=== PATIENT | female | born 1955 | race Caucasian/White ===

== ENCOUNTER 2016-10-08 18:03 | Inpatient (IN) | payer OTHER ==
[~2016-10-08] VITALS: Ht 162.6 cm; Wt 58.8 kg
[2016-10-08] MEDS ORDERED: NITROGLYCERIN 2% 1 GM OINT PKT TD STA (20:49)
[2016-10-08] MEDS ORDERED: ASPIRIN 81 MG TAB PO STA (20:49)
[2016-10-08] MEDS ORDERED: NITROGLYCERIN (SL) 0.4 MG TAB SL PRN (21:00)
[2016-10-08 21:29] LABS: INR 0.87; PARTIAL THROMBOPLASTIN TIME 24.2 Sec (25.0-35.0); PROTIME 11.8 Sec (12.2-14.2); PT RATIO 0.9
[2016-10-08 21:37] LABS: BASOPHIL # 0.1 10^3/ul (0.0-0.1); BASOPHILS % 0.6 % (0.0-2.0); CONDITION 1; EOSINOPHILS # 0.2 10^3/ul (0.0-0.5); EOSINOPHILS % 1.7 % (0.0-7.0); HEMATOCRIT 43.2 % (37.0-47.0); HEMOGLOBIN 14.3 g/dl (12.0-16.0); LYMPHOCYTES # 2.7 10^3/ul (0.8-2.9); LYMPHOCYTES % 26.2 % (15.0-51.0); MEAN CORPUSCULAR HEMOGLOBIN 30.2 pg (29.0-33.0); MEAN CORPUSCULAR HGB CONC 33.1 g/dl (32.0-37.0); MEAN CORPUSCULAR VOLUME 91.3 fl (82.0-101.0); MEAN PLATELET VOLUME 9.6 fl (7.4-10.4); MONOCYTE # 0.7 10^3/ul (0.3-0.9); MONOCYTES % 6.5 % (0.0-11.0); NEUTROPHIL # 6.7 10^3/ul (1.6-7.5); PLATELET COUNT 180 10^3/UL (140-440); RED BLOOD COUNT 4.73 10^6/ul (4.20-5.40); RED CELL DISTRIBUTION WIDTH 13.3 % (11.5-14.5); UNCORRECTED WBC 10.3 10^3/ul (4.8-10.8); WHITE BLOOD COUNT 10.3 10^3/ul (4.8-10.8)
[2016-10-08 21:52] LABS: CHLORIDE 102 mmol/L (97-110); SODIUM 139 mmol/L (135-144)
[2016-10-08 21:53] LABS: POTASSIUM 4.1 mmol/L (3.5-5.1)
[2016-10-08 21:55] LABS: CREATININE 0.51 mg/dl (0.44-1.00)
[2016-10-08 21:56] LABS: ANION GAP 16 (8-16); BLOOD UREA NITROGEN 20 mg/dl (7-20); CALCIUM 8.4 mg/dl (8.4-10.2); CARBON DIOXIDE 25 mmol/L (21-31); GLUCOSE 91 mg/dl (70-220)
[2016-10-08 22:08] LABS: TROPONIN-I < 0.012 ng/ml (0.00-0.12)
--- NOTE | 2016-10-08 22:25 | ERA ---
ER Documentation Chief Complaint Date/Time DATE: 10/08/16 TIME: 22:23 Chief Complaint chest pain and headache and heart palpitations for the week. HPI Patient is a 61-year-old female with hypertension who presents with high blood pressure and chest pain. She also has vomiting. She said that she had fever 4 days ago. She had a headache. The chest pain is left-sided. She said the pain comes and goes. She tried "a pain med". She is concerned about heart attack because both of her parents had heart attacks as well. She tried 81 mg of aspirin today. Upon review of old medical records this is the patient's first visit to the emergency department. ROS All systems reviewed and are negative except as per history of present illness. Medications Home Meds No Active Prescriptions or Reported Meds Allergies Allergies: Coded Allergies: No Known Allergy (Unverified , 10/08/16) PMhx/Soc Medical and Surgical Hx: pt denies Medical Hx, pt denies Surgical Hx Hx Alcohol Use: No Hx Substance Use: No Hx Tobacco Use: No Smoking Status: Never smoker FmHx Family History: coronary disease Physical Exam Vitals Vital Signs Date Time Temp Pulse Resp B/P Pulse Ox O2 Delivery O2 Flow Rate FiO2 10/08/16 20:57 98.1 86 20 118/73 99 Room Air 10/08/16 18:20 98.5 104 22 152/90 98 Physical Exam Const: Anxious Head: Atraumatic Eyes: Normal Conjunctiva ENT: Normal External Ears, Nose and Mouth. Neck: Full range of motion..~ No meningismus. Resp: Clear to auscultation bilaterally Cardio: Regular rate and rhythm, no murmurs Abd: Soft, non tender, non distended. Normal bowel sounds Skin: No petechiae or rashes Back: No midline or flank tenderness Ext: No cyanosis, or edema Neur: Awake and alert Psych: Normal Mood and Affect Result Diagram: 10/08/16 2100 10/08/162124 Results 24 hrs Laboratory Tests Test 10/08/16 21:00 10/08/16 21:25 Activated Partial Thromboplast Time 24.2Sec Basophils # 0.110^3/ul Basophils % 0.6% Eosinophils # 0.210^3/ul Eosinophils % 1.7% Hematocrit 43.2% Hemoglobin 14.3g/dl INR International Normalized Ratio 0.87 Lymphocytes # 2.710^3/ul Lymphocytes % 26.2% Mean Corpuscular Hemoglobin 30.2pg Mean Corpuscular Hemoglobin Concent 33.1g/dl Mean Corpuscular Volume 91.3fl Mean Platelet Volume 9.6fl Monocytes # 0.710^3/ul Monocytes % 6.5% Neutrophils # 6.710^3/ul Neutrophils % 65.0% Nucleated Red Blood Cells # 0.010^3/ul Nucleated Red Blood Cells % 0.0/100WBC Platelet Count 55485^3/UL Prothrombin Time 11.8Sec Prothrombin Time Ratio 0.9 Red Blood Count 4.7310^6/ul Red Cell Distribution Width 13.3% White Blood Count 10.310^3/ul Anion Gap 16 Blood Urea Nitrogen 20mg/dl Calcium Level 8.4mg/dl Carbon Dioxide Level 25mmol/L Chloride Level 102mmol/L Creatinine 0.51mg/dl Glucose Level 91mg/dl Potassium Level 4.1mmol/L Sodium Level 139mmol/L Troponin I < 0.012ng/ml Current Medications Medications (Trade) Dose Ordered Sig/Yarely Route PRN Reason Start Time Stop Time Status Last Admin Dose Admin Aspirin (Aspirin) 162 mg ONCE STAT PO 10/08/16 20:49 10/08/16 20:51 DC 10/08/16 21:15 Nitroglycerin (Nitroglycerin 2% Oint) 1 inch ONCE STAT TD 10/08/16 20:49 10/08/16 20:51 DC 10/08/16 21:15 Nitroglycerin (Nitroglycerin (Sl Tab) 0.4 Mg) 1 tab Q5M UP TO 3 DOSES PRN SL CHEST PAIN 10/08/16 21:00 Ondansetron HCl (Zofran Inj) 4 mg ER BRIDGE PRN IV NAUSEA AND/OR VOMITING 10/08/16 22:30 10/09/16 22:29 Acetaminophen (Tylenol Tab) 650 mg ER BRIDGE PRN PO MILD PAIN/FEVER 10/08/16 22:30 10/09/16 22:29 Procedures/MDM EKG read by me: Rate/Rhythm: Sinus tachycardia rate of 105 Intervals: Normal Impression: Sinus tachycardia without evidence of ischemia Patient refused chest x-ray as she says she had a chest x-ray today at a clinic. Patient is a 61-year-old female with family history of cardiac disease who presents with chest pain. She also has hypertension. She refused chest x-ray. She was given aspirin and nitroglycerin. I am concerned for possible acute coronary syndrome. The patient will be admitted to a telemetry bed to the care of Dr. Munson from the panel team as she has never been admitted before. Departure Diagnosis: Primary Impression: Chest pain Qualified Code: R07.9 - Chest pain, unspecified type Additional Impression: Hypertension Qualified Code: I10 - Essential hypertension Condition: EDOUARD Woodward MD Oct 08, 2016 22:25
[2016-10-08] MEDS ORDERED: ONDANSETRON 4 MG INJ IV PRN (22:30)
[2016-10-08] MEDS ORDERED: ACETAMINOPHEN 325 MG TAB PO PRN (22:30)
[2016-10-08 23:42] VITALS: TEMP 97.3
[2016-10-09] VITALS (12 sets, daily range): BP systolic 89–114; BP diastolic 53–66; PULSE 60–69; RESP 17–20; Ht 162.6 cm; Wt 58.8 kg
[2016-10-09] MEDS ORDERED: morphine 10 MG INJ IM PRN (01:00)
[2016-10-09] MEDS ORDERED: ACETAMINOPHEN 325 MG TAB PO PRN (01:00)
[2016-10-09] MEDS ORDERED: NITROGLYCERIN (SL) 0.4 MG TAB SL PRN (01:00)
[2016-10-09] MEDS ORDERED: ONDANSETRON 4 MG INJ IV PRN (01:00)
[2016-10-09] MEDS ORDERED: morphine 4 MG/ML VIAL IV PRN (01:27)
[2016-10-09] MEDS: HEPARIN 5,000 UNIT/0.5 ML SYG SC SCH ×4 (01:49→21:31)
--- NOTE | 2016-10-09 06:39 | HP ---
DATE OF ADMISSION: 10/08/2016 TIME SEEN: 2300 CHIEF COMPLAINT: Chest pain, palpitations, and shortness of breath. HISTORY OF PRESENT ILLNESS: The patient is a 61-year-old female with a history of hypertension who presented to the ER with a chief complaint of chest pain and palpitation. Chest pain is left-sided, described as sharp, is intermittent, and is nonradiating. She also reported palpitation and shortn ess of breath. She said about 4-5 days ago she had a fever, headache and "flu". She did go to a inic to today and had a chest x-ray, but she does not know the results. She also reported her blood pressure has been higher than normal. She took aspirin today, but she is not sure if it helped bec ause her chest pain has been intermittent. When she presented to the ER, blood pressure was 152/90, heart rate 104, respiratory rate 22, temper ature 98.5, oxygen saturation 98% on room air. She was given aspirin 162 mg, nitroglycerin, Zofran, and Tylenol. Her CBC and BMP are unremarkable. First troponin is negative and EKG with no ST-T wa ve abnormalities. She refused a chest x-ray saying that she had one in the clinic today She did re port having had nonbilious, nonbloody vomiting a few days ago and she said she still has intermitten t, diffuse headache off and on. REVIEW OF SYSTEMS: A 12-point review of systems was performed and is negative except as mentioned i n HPI. PAST MEDICAL HISTORY: As per HPI. PAST SURGICAL HISTORY: Denies. SOCIAL HISTORY: Denied a history of tobacco, alcohol or illicit drug use. FAMILY HISTORY: Mother and father had "heart attacks". ALLERGIES: NO KNOWN DRUG ALLERGIES. HOME MEDICATIONS: None. PHYSICAL EXAMINATION VITAL SIGNS: Blood pressure 118/73, heart rate 86, respiratory rate 20, temperature 98.1, oxygen sa turation 99% on room air. GENERAL: No acute distress, looks comfortable, alert and oriented x4. HEENT: Normocephalic, atraumatic. Extraocular muscles intact. Pupils are reactive to light. CARDIOVASCULAR: Regular rate and rhythm with no extra sounds. LUNGS: Clear. ABDOMEN: Soft, nontender, nondistended. Positive bowel sounds. EXTREMITIES: No edema. NEUROLOGIC: No focal deficits. LABORATORY: CBC and BMP are unremarkable. First troponin is negative. IMAGING: The patient refused chest x-ray. IMPRESSION 1. Chest pain. 2. Headache. 3. Hypertension. PLAN: Admit to telemetry unit. She will be placed on aspirin, beta danilo, oxygen, a statin, as n eeded nitro and morphine. Will trend her troponins and obtain a 2-D echo. Her headache is likely b lood pressure induced given reported elevated blood pressure at home. Her headache could also be se condary to a viral URI given the patient reported flu-like symptoms. In any case, for now, will pro vide pain medication and watchful observation, but if it persists or worsens, we will obtain CT of t he head. Will obtain a 2D echo and consider a cardiology consult. For DVT prophylaxis, subcutaneou s heparin. Further workup and management per clinical course. Dictated By: CHIO MENDES/YULIANA Conf#: [id number] DID#: [id number]
[2016-10-09 07:40] LABS: BASOPHILS % 0.8 % (0.0-2.0); EOSINOPHILS # 0.4 10^3/ul (0.0-0.5); EOSINOPHILS % 8.7 % (0.0-7.0); HEMATOCRIT 34.7 % (37.0-47.0); HEMOGLOBIN 11.9 g/dl (12.0-16.0); LYMPHOCYTES # 2.7 10^3/ul (0.8-2.9); LYMPHOCYTES % 54.3 % (15.0-51.0); MEAN CORPUSCULAR HEMOGLOBIN 31.1 pg (29.0-33.0); MEAN CORPUSCULAR HGB CONC 34.3 g/dl (32.0-37.0); MEAN CORPUSCULAR VOLUME 90.6 fl (82.0-101.0); MEAN PLATELET VOLUME 9.4 fl (7.4-10.4); MONOCYTE # 0.3 10^3/ul (0.3-0.9); MONOCYTES % 6.5 % (0.0-11.0); NEUTROPHIL # 1.5 10^3/ul (1.6-7.5); NEUTROPHILS % 29.7 % (39.0-77.0); PLATELET COUNT 166 10^3/UL (140-440); RED BLOOD COUNT 3.83 10^6/ul (4.20-5.40); RED CELL DISTRIBUTION WIDTH 13.2 % (11.5-14.5)
[2016-10-09 07:49] LABS: CONDITION 1; LH ANALYZER COMMENTS 1
[2016-10-09 07:53] LABS: ALBUMIN 3.3 g/dl (3.3-4.9); POTASSIUM 4.6 mmol/L (3.5-5.1)
[2016-10-09 07:55] LABS: BILIRUBIN,INDIRECT 0.5 mg/dl (0-1.1); BILIRUBIN,TOTAL 0.5 mg/dl (0.2-1.3); CHOL/HDL RATIO 3.9 RATIO; CREATININE 0.68 mg/dl (0.44-1.00)
[2016-10-09 07:56] LABS: ALBUMIN/GLOBULIN RATIO 1.17; CALCIUM 8.3 mg/dl (8.4-10.2); TOTAL PROTEIN 6.1 g/dl (6.1-8.1)
[2016-10-09] MEDS ORDERED: METOPROLOL 25 MG TAB PO SCH (09:00)
[2016-10-09] MEDS: ASPIRIN 81 MG TAB PO SCH (09:13)
[2016-10-09 09:21] LABS: PLATELET ESTIMATE PLT APPEAR ADEQUATE
[2016-10-09 09:59] LABS: CREATINE KINASE 34 IU/L (23-200)
[2016-10-09 10:09] LABS: CK-MB 1.01 ng/ml (0.0-2.4)
[2016-10-09 10:19] LABS: TROPONIN-I < 0.010 ng/ml (0.00-0.12)
--- NOTE | 2016-10-09 10:31 | PN ---
Date/Time of Note Date/Time of Note DATE: 10/09/16 TIME: 10:28 Assessment/Plan VTE Prophylaxis VTE Prophylaxis Intervention: heparin Lines/Catheters IV Catheter Type (from [facility]): [facility] Urinary Cath still in place: No Assessment/Plan Chief Complaint/Hosp Course Assessment and plan 1. Chest pain. Patient with reports of chest palpitations for one week duration. Follow-up on echocardiogram. Ceo [facility] follow. Continue telemetry monitoring. 2. Cephalgia. Etiology unknown. Patient does report having some visual disturbances now with her headache and that her headache is a out of 10. We'll check CT scan of the head 3. Reported history of hypertension. Blood pressure remained stable at present. We'll provide with antihypertensives for systolic blood pressure greater than 160 DVT prophylaxis: Heparin Disposition and plan: CT scan of the head for severe headache with visual disturbance. Ceo [facility] follow. Follow up on echocardiogram. Discussed plan of care with Dr. Goins Problems: Subjective 24 Hr Interval Summary Free Text/Dictation The reports of chest pain at this time. Does report having headache more on occipital region get out of 10 Exam/Review of Systems Vital Signs Vitals Vital Signs Date Time Temp Pulse Resp B/P Pulse Ox O2 Delivery O2 Flow Rate FiO2 10/09/16 08:24 60 10/09/16 08:23 97.8 17 89/54 97 10/09/16 00:08 Room Air Intake and Output 10/08/16 10/08/16 10/09/16 14:59 22:59 06:59 Intake Total 300 ml Output Total 700 ml Balance -400 ml Exam General: Mild distress secondary to headache Eyes: pupils equal round, Anicteric sclera Neck: Supple nontender, no JVD Cardiac: S1, S2 auscultated, regular rhythm and rate Pulmonary: No coarse rhonchi or breathing auscultated GI: Abdomen soft nontender nondistended, bowel sounds active Extremities: No edema bilateral lower extremities Skin: Clean dry and intact Neurologic: Alert to person place and time and situation Results Result Diagram: 10/09/16 0642 10/09/16 0642 Results 24 hrs Laboratory Tests Test 10/08/16 21:00 10/08/16 21:25 10/09/16 01:55 10/09/16 06:42 Activated Partial Thromboplast Time 24.2 L Basophils # 0.1 0.0 Basophils % 0.6 0.8 Eosinophils # 0.2 0.4 Eosinophils % 1.7 8.7 H Hematocrit 43.2 34.7 L Hemoglobin 14.3 11.9 L INR International Normalized Ratio 0.87 Lymphocytes # 2.7 2.7 Lymphocytes % 26.2 54.3 H Mean Corpuscular Hemoglobin 30.2 31.1 Mean Corpuscular Hemoglobin Concent 33.1 34.3 Mean Corpuscular Volume 91.3 90.6 Mean Platelet Volume 9.6 9.4 Monocytes # 0.7 0.3 Monocytes % 6.5 6.5 Neutrophils # 6.7 1.5 L Neutrophils % 65.0 29.7 L Nucleated Red Blood Cells # 0.0 0.0 Nucleated Red Blood Cells % 0.0 0.0 Platelet Count 180 166 Prothrombin Time 11.8 L Prothrombin Time Ratio 0.9 Red Blood Count 4.73 3.83 L Red Cell Distribution Width 13.3 13.2 White Blood Count 10.3 5.0 # Anion Gap 16 13 Blood Urea Nitrogen 20 16 Calcium Level 8.4 8.3 L Carbon Dioxide Level 25 31 Chloride Level 102 100 Creatinine 0.51 0.68 Glucose Level 91 87 Potassium Level 4.1 4.6 Sodium Level 139 139 Troponin I < 0.012 < 0.012 Alanine Aminotransferase (ALT/SGPT) 26 Albumin 3.3 Albumin/Globulin Ratio 1.17 Alkaline Phosphatase 63 Aspartate Amino Transf (AST/SGOT) 22 Cholesterol Level 143 Cholesterol/HDL Ratio 3.9 Differential Comment AUTO w/SCAN Direct Bilirubin 0.00 Globulin 2.80 HDL Cholesterol 36 Hemoglobin A1c 5.3 Indirect Bilirubin 0.5 LDL Cholesterol, Calculated 93 Platelet Estimate PLT APPEAR ADEQUATE Total Bilirubin 0.5 Total Protein 6.1 Triglycerides Level 69 Test 10/09/16 08:40 Creatine Kinase 34 Creatine Kinase Index 3.0 Creatinine Kinase MB (Mass) 1.01 Troponin I < 0.010 Medications Medications Current Medications Metoprolol Tartrate (Lopressor) 12.5 mg BID PO ; Start 10/09/16 at 09:00 Aspirin (Aspirin) 81 mg DAILY PO Last administered on 10/09/16t 09:13; Admin Dose 81 MG; Start 10/09/16 at 09:00 Nitroglycerin (Nitroglycerin (Sl Tab) 0.4 Mg) 1 tab Q5M PRN SL ANGINA; Start 1 /18/17 at 01:00 Acetaminophen (Tylenol Tab) 650 mg Q6H PRN PO PAIN AND OR ELEVATED TEMP; Start 10/09/16 at 01:00 Ondansetron HCl (Zofran Inj) 4 mg Q6H PRN IV NAUSEA AND/OR VOMITING; Start at 01:00 Heparin Sodium (Porcine) (Heparin (5000 Units/0.5 ml)) 5,000 unit Q8 SC Last administered on 10/09/16 01:49; Admin Dose 5,000 UNIT; Start 10/09/16 at 01:00 Morphine Sulfate (morphine) 3 mg Q4H PRN IV CP Last administered on 10/09/16 09:14; Admin Dose 3 MG; Start 10/09/16 at 01:27 BOZENA AVERY Oct 09, 2016 10:31
--- NOTE | 2016-10-09 11:11 | RADRPT ---
Echocardiogram Report Patient Name: TAVARES LIRIANO Gender: Female Date: 1955 Study Date: 09-Oct-2016 Warehouse Team Member: Umair Ahumada [facility] Location: [id number] Ref. Physician: CHIO SHERWOOD Quality: Adequate Procedures: Transthoracic echocardiogram with complete 2D, M-Mode, and doppler examination. Indications: Chest Pain. Shortness of breath. 2D/M Mode Doppler Measurement Value Normal Ranges Measurement Value Normal Ranges LVIDd 2D 4.6 3.5 - 5.6 cm AV Peak Dieter 1.1 m/sec LVIDs 2D 2.1 2.1 - 4.1 cm AV Peak PG 4.4 mmHg LVPWd 2D 0.5 0.6 - 1.1 cm MV E Peak Dieter 0.6 m/sec IVSd 2D 0.6 0.6 - 1.1 cm MV A Peak Dieter 0.4 m/sec AoR Diam 2D 3.0 2.0 - 3.7 cm MV E/A 1.4 EDV 2D 98.3 cm3 MV Decel Time 131 msec ESV 2D 9.9 cm3 MV Decel [place] 5 LA Dimen 2D 2.6 2.3 - 4.0 cm MV E/A 1.4 TR Peak Dieter 2.3 m/sec TR Peak PG 20.8 mmHg RVSP 24.0 mmHg Findings Left Ventricle: Normal left ventricular systolic function. Normal left ventricular cavity size. Normal left ventricular wall thickness. Ejection fraction is visually estimated at 55 %. Right Ventricle: Normal right ventricular systolic function. Mild enlargement of right ventricle. Left Atrium: The left atrium is normal in size. Right Atrium: There is mild enlargement of right atrium. Mitral Valve: Normal appearance and function of the mitral valve with trace physiologic regurgitation. Aortic Valve: Normal appearance of the aortic valve. No significant aortic stenosis or insufficiency. Tricuspid Valve: Normal appearance and function of the tricuspid valve with trace physiologic regurgitation. Estimated peak PA systolic pressure 24 mmHg. Pericardium: Trivial pericardial effusion. Aorta: Normal aortic root. IVC: Normal size and normal respiratory collapse consistent with normal right atrial pressure. Conclusions Normal left ventricular systolic function. Normal left ventricular cavity size. Normal left ventricular wall thickness. Ejection fraction is visually estimated at 55 %. Normal right ventricular systolic function. Mild enlargement of right ventricle. The left atrium is normal in size. There is mild enlargement of right atrium. No significant valvular stenosis or regurgitation seen. Trivial pericardial effusion. Electronically Signed By: Shahram Gonzales 09-Oct-2016 11:10:15 -0800 Patient Name: TAVARES LIRIANO Study Date: 09-Oct-[id number]
--- NOTE | 2016-10-09 11:29 | CONS ---
Date/Time of Note Date/Time of Note DATE: 10/09/16 TIME: 11:22 Assessment/Plan Assessment/Plan Additional Assessment/Plan Hypertension Palpitations Atrial tachycardia Preserved ejection fraction -Patient with symptoms of palpitations, headache and hypertension. Blood pressure currently low this morning. I did remove her nitroglycerin ointment. Furthermore, the hemoglobin has decreased compared to initial labs, possible initial hypovolemia. Serial cardiac enzymes have remained negative, echocardiogram with normal left ventricular systolic function with no significant valvular abnormalities. She initially had atrial tachycardia on her ECG but on telemetry heart rates have been in the 70s to 80s. If inadequate by mouth intake, would give IV fluids. Consultation Date/Type/Reason Admit Date/Time Oct 08, 2016 at 22:11 Type of Consultation: cv Reason for Consultation Palpitations and hypertension Hx of Present Illness This is a 61-year-old female with no significant past medical history who presents with hypertension, palpitations and headache. Patient was at a rehabilitation facility visiting her mother in complaining of headache. She had her blood pressure checked and it was above 180. She was told to go to the emergency room. She has been having intermittent palpitations over the past few weeks. She had a recent viral infection which she thought was the flu approximately 2 weeks ago. She has been having body aches, intermittent palpitations and fatigue since then. She denies exertional chest pain. She has occasional shortness of breath since the flu. Her palpitations are intermittent , have been worse with activity and standing up. She currently denies any fevers or chills, dizziness or lightheadedness. She denies any syncope or near- syncope. She denies any lower extremity edema. 12 point review of systems was performed with all pertinent positives and negatives mentioned above and all else is negative Past Medical History Medical History: no pertinent history Family History Significant Family History: other (mother with heart disease in her 80s, father with heart disease at 55) Social History Alcohol Use: none Smoking Status: Never smoker Exam/Review of Systems Vital Signs Vitals Vital Signs Date Time Temp Pulse Resp B/P Pulse Ox O2 Delivery O2 Flow Rate FiO2 10/09/16 08:24 60 10/09/16 08:23 97.8 17 89/54 97 10/09/16 00:08 Room Air Intake and Output 10/08/16 10/08/16 10/09/16 15:00 23:00 07:00 Intake Total 300 ml Output Total 700 ml Balance -400 ml Exam No apparent distress Constitutional: alert, oriented, well developed Head: normocephalic Neck: supple Respiratory: other (course breath sounds bilaterally, no wheezing) Cardiovascular: other (S1 and S2 heard, no murmurs appreciated), regular rate and rhythm Gastrointestinal: bowel sounds, non-tender, soft Extremities: other (no edema) Results Result Diagram: 10/09/16 0642 10/09/16 0642 Results 24 hrs Laboratory Tests Test 10/08/16 21:00 10/08/16 21:25 10/09/16 01:55 10/09/16 06:42 Activated Partial Thromboplast Time 24.2 L Basophils # 0.1 0.0 Basophils % 0.6 0.8 Eosinophils # 0.2 0.4 Eosinophils % 1.7 8.7 H Hematocrit 43.2 34.7 L Hemoglobin 14.3 11.9 L INR International Normalized Ratio 0.87 Lymphocytes # 2.7 2.7 Lymphocytes % 26.2 54.3 H Mean Corpuscular Hemoglobin 30.2 31.1 Mean Corpuscular Hemoglobin Concent 33.1 34.3 Mean Corpuscular Volume 91.3 90.6 Mean Platelet Volume 9.6 9.4 Monocytes # 0.7 0.3 Monocytes % 6.5 6.5 Neutrophils # 6.7 1.5 L Neutrophils % 65.0 29.7 L Nucleated Red Blood Cells # 0.0 0.0 Nucleated Red Blood Cells % 0.0 0.0 Platelet Count 180 166 Prothrombin Time 11.8 L Prothrombin Time Ratio 0.9 Red Blood Count 4.73 3.83 L Red Cell Distribution Width 13.3 13.2 White Blood Count 10.3 5.0 # Anion Gap 16 13 Blood Urea Nitrogen 20 16 Calcium Level 8.4 8.3 L Carbon Dioxide Level 25 31 Chloride Level 102 100 Creatinine 0.51 0.68 Glucose Level 91 87 Potassium Level 4.1 4.6 Sodium Level 139 139 Troponin I < 0.012 < 0.012 Alanine Aminotransferase (ALT/SGPT) 26 Albumin 3.3 Albumin/Globulin Ratio 1.17 Alkaline Phosphatase 63 Aspartate Amino Transf (AST/SGOT) 22 Cholesterol Level 143 Cholesterol/HDL Ratio 3.9 Differential Comment AUTO w/SCAN Direct Bilirubin 0.00 Globulin 2.80 HDL Cholesterol 36 Hemoglobin A1c 5.3 Indirect Bilirubin 0.5 LDL Cholesterol, Calculated 93 Platelet Estimate PLT APPEAR ADEQUATE Total Bilirubin 0.5 Total Protein 6.1 Triglycerides Level 69 Test 10/09/16 08:40 Creatine Kinase 34 Creatine Kinase Index 3.0 Creatinine Kinase MB (Mass) 1.01 Troponin I < 0.010 Medications Medications Current Medications Metoprolol Tartrate (Lopressor) 12.5 mg BID PO ; Start 10/09/16 at 09:00 Aspirin (Aspirin) 81 mg DAILY PO Last administered on 10/09/16 09:13; Admin Dose 81 MG; Start 10/09/16 at 09:00 Nitroglycerin (Nitroglycerin (Sl Tab) 0.4 Mg) 1 tab Q5M PRN SL ANGINA; Start at 01:00 Acetaminophen (Tylenol Tab) 650 mg Q6H PRN PO PAIN AND OR ELEVATED TEMP; Start 10/09/16 at 01:00 Ondansetron HCl (Zofran Inj) 4 mg Q6H PRN IV NAUSEA AND/OR VOMITING; Start at 01:00 Heparin Sodium (Porcine) (Heparin (5000 Units/0.5 ml)) 5,000 unit Q8 SC Last administered on 10/09/16 01:49; Admin Dose 5,000 UNIT; Start 10/09/16 at 01:00 Morphine Sulfate (morphine) 3 mg Q4H PRN IV CP Last administered on 10/09/16 09:14; Admin Dose 3 MG; Start 10/09/16 at 01:27 Procedures Procedures ECG demonstrates atrial tachycardia at 105 bpm, QRS 89 ms, no significant ischemic STT wave abnormalities Shahram Gonzales DO Oct 09, 2016 11:29
[2016-10-09] MEDS ORDERED: SOD CHLORIDE 0.9% 1,000 ML IV SCH (11:30)
--- NOTE | 2016-10-09 14:06 | RADRPT ---
PROCEDURE: CT Brain without contrast. CLINICAL INDICATION: Headache and visual disturbance. TECHNIQUE: A CT of the brain without contrast was performed utilizing axial sections from the skul l base through the vertex. The patient was scanned without intravenous contrast enhancement. [place] l and coronal reformatted images were obtained using the data from the axial images. Total exam DLP is 630.20 mGy-cm. CTDIvol is 44.84 mGy. One or more of the following dose reduction techniques we re used: Automated exposure control, adjustment of the mA and/or kV according to patient size, use o f iterative reconstruction technique. COMPARISON: None available FINDINGS: There is normal vences-white matter differentiation. The ventricles and cisterns are normal. There is no intracranial hemorrhage or space-occupying lesion. There is no skull fracture or lytic lesion. IMPRESSION: 1. Normal noncontrast CT scan of the brain. RPTAT: QQ .Ardián Arauz MD, MD Date Time Electronically viewed and signed by .Adrián Arauz MD, on 10/09/2016 14:06 .R/
[2016-10-10] VITALS (10 sets, daily range): BP systolic 102–116; BP diastolic 55–72; PULSE 60–74; RESP 18–20
[2016-10-10] MEDS: HEPARIN 5,000 UNIT/0.5 ML SYG SC SCH ×2 (05:33→14:33)
[2016-10-10 07:47] LABS: BASOPHILS % 0.5 % (0.0-2.0); CONDITION 1; EOSINOPHILS # 0.4 10^3/ul (0.0-0.5); EOSINOPHILS % 8.5 % (0.0-7.0); HEMOGLOBIN 11.7 g/dl (12.0-16.0); LH ANALYZER COMMENTS 1; LYMPHOCYTES # 2.6 10^3/ul (0.8-2.9); LYMPHOCYTES % 57.5 % (15.0-51.0); MEAN CORPUSCULAR HEMOGLOBIN 30.5 pg (29.0-33.0); MEAN CORPUSCULAR HGB CONC 33.3 g/dl (32.0-37.0); MEAN CORPUSCULAR VOLUME 91.6 fl (82.0-101.0); MEAN PLATELET VOLUME 8.9 fl (7.4-10.4); MONOCYTE # 0.3 10^3/ul (0.3-0.9); MONOCYTES % 7.6 % (0.0-11.0); NEUTROPHIL # 1.1 10^3/ul (1.6-7.5); NEUTROPHILS % 25.9 % (39.0-77.0); PLATELET COUNT 169 10^3/UL (140-440); RED BLOOD COUNT 3.82 10^6/ul (4.20-5.40); RED CELL DISTRIBUTION WIDTH 13.2 % (11.5-14.5); UNCORRECTED WBC 4.4 10^3/ul (4.8-10.8); WHITE BLOOD COUNT 4.4 10^3/ul (4.8-10.8)
[2016-10-10] MEDS: ASPIRIN 81 MG TAB PO SCH (09:44)
[2016-10-10] MEDS ORDERED: BUTA1CAP38 PO (14:49)
[2016-10-10] MEDS ORDERED: ACET325T33 PO (14:49)
[2016-10-10] MEDS ORDERED: PANT40TA3 PO (14:51)
--- NOTE | 2016-10-10 14:51 | PDOCDIS ---
Discharge Instructions DIAGNOSIS Discharge Diagnosis: 1. Chest pain 2. Cephalgia 3. Reported history of hypertension CONDITION Patient Condition: Stable HOME CARE INSTRUCTIONS: Diet Instructions: Regular FOLLOW UP/APPOINTMENTS Appointments 1. Follow-up with your primary care provider within a week OTHER ORDERS: Other Orders: 1. Call 911 for Worsening chest pain or shortness of breath BOZENA AVERY Oct 10, 2016 14:51
--- NOTE | 2016-10-10 15:49 | CONS ---
Date/Time of Note Date/Time of Note DATE: 10/10/16 TIME: 15:43 Assessment/Plan Assessment/Plan Additional Assessment/Plan Hypertension Palpitations Atrial tachycardia, resolved Preserved ejection fraction -Patient with normal heart rate trend on telemetry, no further symptoms of palpitations or dizziness. Major complaint is indigestion and acid reflux after eating. No further inpatient cardiac workup needed at the current time. Consultation Date/Type/Reason Admit Date/Time Oct 08, 2016 at 22:11 Initial Consult Date Type of Consultation: cv 24 HR Interval Summary Free Text/Dictation Denies chest pain, shortness of breath or palpitations. Major complaint is dyspepsia and acid indigestion Exam/Review of Systems Vital Signs Vitals Vital Signs Date Time Temp Pulse Resp B/P Pulse Ox O2 Delivery O2 Flow Rate FiO2 10/10/16 12:24 60 10/10/16 11:35 98.8 20 110/56 98 10/09/16 00:08 Room Air Intake and Output 10/09/16 10/09/16 10/10/16 15:00 23:00 07:00 Intake Total 350 ml Output Total 600 ml Balance -250 ml Exam No apparent distress Constitutional: alert, oriented Head: normocephalic Neck: supple Respiratory: clear to auscultation, normal air movement Cardiovascular: other (S1-S2 heard), regular rate and rhythm Gastrointestinal: bowel sounds, other, soft, tender (mild epigastric discomfort with palpation) Extremities: other (no edema) Results Result Diagram: 10/10/16 0635 10/09/16 0642 Results 24 hrs Laboratory Tests Test 10/10/16 06:35 Basophils # 0.0 Basophils % 0.5 Eosinophils # 0.4 Eosinophils % 8.5 H Hematocrit 35.0 L Hemoglobin 11.7 L Lymphocytes # 2.6 Lymphocytes % 57.5 H Mean Corpuscular Hemoglobin 30.5 Mean Corpuscular Hemoglobin Concent 33.3 Mean Corpuscular Volume 91.6 Mean Platelet Volume 8.9 Monocytes # 0.3 Monocytes % 7.6 Neutrophils # 1.1 L Neutrophils % 25.9 L Nucleated Red Blood Cells # 0.0 Nucleated Red Blood Cells % 0.0 Platelet Count 169 Red Blood Count 3.82 L Red Cell Distribution Width 13.2 White Blood Count 4.4 L Medications Medications Current Medications Aspirin (Aspirin) 81 mg DAILY PO Last administered on 10/10/16 09:44; Admin Dose 81 MG; Start 10/09/16 at 09:00 Nitroglycerin (Nitroglycerin (Sl Tab) 0.4 Mg) 1 tab Q5M PRN SL ANGINA; Start at 01:00 Acetaminophen (Tylenol Tab) 650 mg Q6H PRN PO PAIN AND OR ELEVATED TEMP; Start 10/09/16 at 01:00 Ondansetron HCl (Zofran Inj) 4 mg Q6H PRN IV NAUSEA AND/OR VOMITING Last administered on 10/10/16 14:27; Admin Dose 4 MG; Start 10/09/16 at 01:00 Heparin Sodium (Porcine) (Heparin (5000 Units/0.5 ml)) 5,000 unit Q8 SC Last administered on 10/10/16 14:33; Admin Dose 5,000 UNIT; Start 10/09/16 at 01:00 Morphine Sulfate (morphine) 3 mg Q4H PRN IV CP Last administered on 10/09/16 09:14; Admin Dose 3 MG; Start 10/09/16 at 01:27 Shahram Gonzales DO Oct 10, 2016 15:49
--- NOTE | 2016-10-17 15:49 | DS ---
DATE OF ADMISSION: 10/08/2016 DATE OF DISCHARGE: 10/10/2016 CONSULTANTS: Dr. Shahram Gonzales. DISCHARGE DIAGNOSES: 1. Chest pain, likely musculoskeletal. 2. Cephalgia. 3. Reported history of hypertension. HOSPITAL COURSE: This is a 61-year-old female with reported history of hypertension who came to [facility] due to reports of chest pain and palpitations. The patient did report her chest pain was left-sided and described it as sharp and intermittent and nonradiating. She also st ated that prior to this 4 to 5 days prior to admission, she had headache and flu-like symptoms. She did have a chest x-ray done at outside clinic but did not know the results. She did come to [facility] due to the aforementioned issues. Patient did have echocardiogram done which did show her to have an ejection fraction of 55%. She was also seen by lathe machine operator. After review by lathe machine operator the patient did not need any further cardiac intervention. Her troponins wer e negative. Of note, patient also did report having some headaches and she did have a brain CT whic h was negative for any acute intracranial findings. She was optimized with analgesics. Patient was ruled out for ACS and likely her chest pain was musculoskeletal in nature. She was otherwise optim ized medically. Her blood pressure did remain stable and we did just continue to monitor her for th is. She was instructed to follow up with her primary care provider within a week. The plan of care was discussed with patient and patient did verbalize her understanding. On the day of discharge, th e patient was in stable condition. Discharge physical exam and vital signs are stable. CONDITION: Stable. DISCHARGE PLAN: 1. Patient to follow up with her primary care provider within a week. 2. Patient to call 911 if there is worsening chest pain or shortness of breath. DISCHARGE PROCESS TIME: 40 minutes. Discussed plan of care with Dr. Goins. Dictated By: BOZENA AVERY NP for ZARIA SLATER/YULIANA Conf#: [id number] DID#: [id number]
== END 2016-10-10 18:25 | disposition home or self-care (01) | DRG 313 ==
LOC: E/R 18:03 → MS4 22:11
PROVIDERS: ADMIT Internal Medicine; ATTEND Internal Medicine
DX: R07.89 Other chest pain (principal); I10 Essential (primary) hypertension; I47.1 Supraventricular tachycardia; Z82.49 Family history of ischemic heart disease and other diseases of the circulatory system; R51 Headache
CPT/HCPCS: 36415; 70450; 80048; 80053; 80061; 82550; 82553; 83036; 84484; 85025; 85610; 85730; 93005; 93306; J2270; J2405; J7030